=== PATIENT | male | born 1990 | race Caucasian/White ===

== ENCOUNTER → 2024-06-06 10:42 | Outpatient (BNVA) | payer MEDICARE, MEDICAID, SELFPAY | PROVIDERS: Visit Provider Nurse Practitioner Gerontology | DX: N43.40 Spermatocele of epididymis, unspecified (principal); R10.2 Pelvic and perineal pain | CPT/HCPCS: 99204 ==

== ENCOUNTER → 2025-06-04 10:29 | Outpatient (BNVA) | payer MEDICARE, MEDICAID, SELFPAY | PROVIDERS: Visit Provider Nurse Practitioner Gerontology | DX: N43.40 Spermatocele of epididymis, unspecified (principal); R10.20 Pelvic and perineal pain unspecified side | CPT/HCPCS: 99213 ==